=== PATIENT | female | born 1950 ===

== ENCOUNTER 2025-03-04 10:48 | Outpatient (AMB) | payer MEDICARE, MEDICAID, SELFPAY ==
--- NOTE | 2025-03-04 11:02 | A.OFFVIS_ITS ---
Intake Visit Reasons: last seen 2022 Sz Allergies No Known Allergies Allergy (Verified 03/02/25 11:29) HPI Comments Details: This is a 75-year-old woman who is followed here for a seizure disorder and encephalopathy and cerebral palsy. She returns for follow-up after a hiatus of 20 months.No Sz since last visit No falls. Doing well. No side effects. . She has had no recurrence of seizures since 1981. 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 She normally gets around with a spastic gait using a walker. There is no headache or dizziness. Reports no side effects from her medications.. [facility] Medical History (Updated 03/04/25 @ 11:07 by Melania Lemus MD) Unspecified intellectual disabilities Convulsions Review of Systems Const Details: General/Constitutional:? Change in appetite?denies.? Fatigue?denies.? Fever?denies.? Weight gain? denies.? Weight loss?denies.? ?? Sleep:? Difficulty getting to sleep?denies.? Difficulty maintaining sleep?denies? .? Daytime sleepiness?denies.? ?? Respiratory:? Shortness of breath?denies.? Chest pain?denies.? ?? Cardiovascular:? Chest pain at rest?denies.? Chest pain with exertion?denies.? Dizziness? denies.? Fluid accumulation in the legs?denies.? Irregular heartbeat?denies.? Palpitations?denies.? ?? Gastrointestinal:? Constipation?denies.? Diarrhea?denies.? Difficulty swallowing?denies.? Heartburn?denies.? Nausea?denies.? ?? Genitourinary:? Frequent urination?denies.? Urgency?denies.? Incontinence?denies.? ?? Musculoskeletal:? Neck pain?denies.? Back pain?denies.? Joint stiffness?denies.? Sciatica? denies.? ?? Neurologic:? Difficulty swallowing?denies.? Balance difficulty?admits.? Coordination? poor.? Difficulty speaking?that is chronic.? Dizziness?denies.? Fainting?denies .? Gait abnormality?admits.? Headache?denies.? Loss of strength?denies.? Loss of use of extremity?denies.? Low back pain?denies.? Memory loss?denies.? Seizures? denies.? Tics?denies.? Tingling/Numbness?denies.? Transient loss of vision? denies.? Tremor?denies.? ?? Psychiatric:? Anxiety?denies.? Auditory/visual hallucinations?denies.? Delusions?denies .? Depressed mood?denies.? Stressors?denies.? Suicidal thoughts?denies.? ?? Physical Exam Neuro Other: General Examination: ? GENERAL APPEARANCE:?normal,?in no acute distress.? HEART:?S1, S2 normal,?no murmurs.? LUNGS:?clear anteriorly and posteriorly.? MUSCULOSKELETAL:?normal.? EXTREMITIES:?no edema.? PSYCH:?alert, oriented,?cognitive function intact,?cooperative with exam.? Mini Mental Status Exam: ? Level of Consciousness:?Alert.? Orientation:?Unable.? Registration:?Unable.? Attention:?Unable.? Recall:?Unable.? Language:?Dysarthric speech, gives simple answers.?.? Total Score:?Unable to assess.? Neurological: ? Abnormal neurological findings:?Mild to moderate mental retardation. Somewhat limited exam. The patient follows commands. Her speech is very dysarthric. She has slight decorticate posturing. There is some increase in muscle tone throughout. Deep tendon reflexes are hyperactive 3+. She walks with a spastic gait using a walker..? Mental Status:?Mild to moderate amount mental retardation.? Cranial Nerves:?Pupils are equal, round and reactive to light. Fundoscopy shows normal disc bilaterally. External occular muscles are intact. Visual arroyo are full, no ptosis. Face is symmetrical, no facial weakness or droop. Facial sensations are normal. Tongue protrudes in midline. Palate elevates symmetrically. Shoulder shrugging is normal..? Motor Examination:?Increased tone in all muscles slight decorticate posturing. Somewhat limited exam because of mental status.? Straight Leg Raising:?90 degrees.? Sensory Exam:?Inadequate because of mental status.? Coordination:?no ataxia,?no titubation,?[id number], [id number] test and rapid alternating movements were normal.? Gait Exam:?Spastic unsteady gait with walker.? Cerebellar Signs:?Dysmetria on finger to nose test bilaterally..? Extrapyramidal System:?No tremor, rigidity with normal facial expressions,?No bradykinesia, no bradyphrenia. ? Speech:??dysarthria.. Assessment & Plan Assessment & Plan (1) Seizure disorder: Code(s): G40.909 - Epilepsy, unspecified, not intractable, without status epilepticus Category: Medical (2) Mild hypoxic-ischemic encephalopathy: Code(s): P91.61 - Mild hypoxic ischemic encephalopathy [HIE] Category: Medical (3) Cerebral palsy: Code(s): G80.9 - Cerebral palsy, unspecified Category: Medical Plan Continue Phenytoin 100mg bid. Medications: New phenytoin sodium extended 100 mg PO BID 60 caps 12RF 30 days Coding Level of Care Code Est Pt Level 4 (97034) Diagnoses Seizure disorder G40.909 Mild hypoxic-ischemic encephalopathy P91.61 Cerebral palsy G80.9
== END 2025-03-04 11:31 | disposition home or self-care (01) ==
PROVIDERS: PCP Internal Medicine; Visit Provider Psychiatry & Neurology Neurology
DX: G40.909 Epilepsy, unspecified, not intractable, without status epilepticus (principal); P91.61 Mild hypoxic ischemic encephalopathy [HIE]; G80.9 Cerebral palsy, unspecified
CPT/HCPCS: 99214

== ENCOUNTER → 2025-03-04 10:48 | Outpatient (BNVA) | payer MEDICARE, MEDICAID, SELFPAY | PROVIDERS: PCP Internal Medicine; Visit Provider Psychiatry & Neurology Neurology | DX: G40.909 Epilepsy, unspecified, not intractable, without status epilepticus (principal); G80.9 Cerebral palsy, unspecified; G93.49 Other encephalopathy | CPT/HCPCS: 99212 ==